=== PATIENT | female | born 1975 | race Caucasian/White ===

== ENCOUNTER 2023-04-01 12:47 | Emergency (ER) | payer OTHER ==
[~2023-04-01] VITALS: Ht 157.5 cm; Wt 47.6 kg
[2023-04-01] MEDS ORDERED: TRIVORA-28 TAB1 EACH (13:32)
== END 2023-04-01 18:07 | disposition home or self-care (01) ==
LOC: ER 12:47
DX: M79.601 Pain in right arm (principal); W18.39XA Other fall on same level, initial encounter; Y93.89 Activity, other specified; Y92.017 Garden or yard in single-family (private) house as the place of occurrence of the external cause; Z88.2 Allergy status to sulfonamides